=== PATIENT | male | born 1940 | race Caucasian/White ===

== ENCOUNTER 2020-08-05 17:59 | Inpatient (IN) | payer MEDICARE, OTHER ==
[~2020-08-05] VITALS: Ht 160 cm; Wt 86.2 kg
[2020-08-05] MEDS ORDERED: ACET-2154 PO (18:28)
[2020-08-05] MEDS ORDERED: OMEG1CAP PO (18:28)
[2020-08-05] MEDS ORDERED: OXYB-58 PO (18:28)
[2020-08-05] MEDS ORDERED: DOCU-141 PO (18:28)
[2020-08-05] MEDS ORDERED: IBUP-1953 PO ×2 (18:28)
[2020-08-05] MEDS ORDERED: CITA10TA17 PO (18:28)
[2020-08-05] MEDS ORDERED: GABA-532 PO (18:28)
[2020-08-05] MEDS ORDERED: QUET100T PO (18:28)
[2020-08-05] MEDS ORDERED: GUAI-671 PO (18:28)
[2020-08-05] MEDS ORDERED: ASPI81TA31 PO (18:28)
[2020-08-05] MEDS ORDERED: LORA10TA7 PO (18:28)
[2020-08-05] MEDS ORDERED: VIT1CAPS44 PO (18:28)
[2020-08-05] MEDS ORDERED: ISOS30TA86 PO (18:28)
[2020-08-05] MEDS ORDERED: ATOR20TA PO (18:28)
[2020-08-05] MEDS ORDERED: PROP10DR2 EACHEYE (18:28)
[2020-08-05] MEDS ORDERED: MELA3TAB41 PO (18:28)
[2020-08-05 18:39] LABS: BASOPHILS # (AUTO) 0.1 K/uL (0.0-8.0); EOSINOPHILS # (AUTO) 0.1 K/uL (0.0-0.7); HEMOGLOBIN 13.4 g/dL (12.5-16.3); LYMPHOCYTES % (AUTO) 29.4 % (20.5-51.5); MEAN CORPUSCULAR HEMOGLOBIN 29.4 uug (23.8-33.4); MEAN CORPUSCULAR HGB CONC 34 g/dL (32.5-36.3); MEAN CORPUSCULAR VOLUME 87.7 fL (73.0-96.2); MONOCYTES # (AUTO) 0.5 K/uL (2.0-10.0); MONOCYTES % (AUTO) 7.8 % (0.0-11.0); NEUTROPHILS # (AUTO) 4.1 K/uL (1.8-8.9); NEUTROPHILS % (AUTO) 59.8 % (38.5-71.5); PLATELET COUNT (AUTO) 223 K/uL (152-348); RED BLOOD CELL COUNT(AUTO) 4.56 MIL/uL (4.06-5.63); WHITE BLOOD COUNT (AUTO) 6.8 K/uL (3.6-10.2)
[2020-08-05 18:44] LABS: CARBON DIOXIDE 25 mmol/L (21-32); CHLORIDE 102 mmol/L (98-107); CREATININE 1.5 mg/dL (0.6-1.3); GLUCOSE 136 mg/dL (74-106); POTASSIUM 3.7 mmol/L (3.5-5.1); UREA NITROGEN, BLOOD 24 mg/dL (7-18)
[2020-08-05 18:50] LABS: ALANINE AMINOTRANSFERASE 24 U/L (16-63); ALKALINE PHOSPHATASE 130 U/L (50-136); ASPARTATE AMINOTRANSFERASE 13 U/L (15-37); BILIRUBIN,DIRECT 0.1 mg/dL (0.0-0.2); BILIRUBIN,TOTAL 0.3 mg/dL (0.2-1.0); TOTAL PROTEIN, SERUM 6.3 g/dL (6.4-8.2)
--- NOTE | 2020-08-05 18:55 | NUR ---
Patient is eating sandwich with good appetite, still for medical clearance and psych evaluation@this time.
[2020-08-05 19:04] LABS: ACETAMINOPHEN < 2.0 ug/mL (10-30); ETHANOL < 3 MG/DL (0-0)
--- NOTE | 2020-08-05 19:05 | NUR ---
Recieved report from Maeve FRASER. Pt. is being medically cleared for psych evaluation.
[2020-08-05 19:26] LABS: *BILIRUBIN,URIN NEGATIVE (NEGATIVE); *BLOOD, URINE NEGATIVE (NEGATIVE); *CLARITY,URINE CLEAR (CLEAR); *COLOR,URINE YELLOW (YELLOW); *KETONES,URINE NEGATIVE (NEGATIVE); *UROBILINOGEN,URINE 0.2 E.U./dl (NORMAL); LEUKOCYTE ESTERASE ,URINE NEGATIVE (NEGATIVE); NITRITE, URINE NEGATIVE (NEGATIVE); PH,URINE 5.5 (5.0-8.0); UGLUCOSE NEGATIVE (NEGATIVE)
[2020-08-05 19:34] LABS: *AMPHETAMINE, URINE NEGATIVE (NEGATIVE); *CANNABINOID, URINE NEGATIVE (NEGATIVE); *COCCAINE, URINE NEGATIVE (NEGATIVE); *OPIATE, URINE NEGATIVE (NEGATIVE); *PHENCYCLIDINE SCREEN,URINE NEGATIVE (NEGATIVE)
--- NOTE | 2020-08-05 20:08 | NUR ---
Pt. has been medically cleared. Called Flores (crisis team) to evaluate the pt.
[2020-08-05] MEDS ORDERED: ACETAMINOPHEN ES 500 MG TABLET PO ONE (20:15)
[2020-08-05] MEDS ORDERED: GABAPENTIN 300 MG CAPSULE PO ONE (20:15)
--- NOTE | 2020-08-05 21:00 | NUR ---
Pt. calm and cooperative, resting in bed. Will continue to monitor.
[2020-08-05] MEDS ORDERED: ACETAMINOPHEN ES 500 MG TABLET ONE (21:10)
[2020-08-05] MEDS ORDERED: GABAPENTIN 300 MG CAPSULE ONE (21:10)
--- NOTE | 2020-08-05 21:51 | NUR ---
Report given to Ximena FRASER.
--- NOTE | 2020-08-05 22:15 | NUR ---
Pt. admitted to MHU room 139A, under care of Dr. Pugh/CHACHO Cedeno. Belongs List completed.
[2020-08-05] MEDS ORDERED: MAGNESIUM HYDROXIDE 30 ML LIQUID UDC PO PRN (23:00)
[2020-08-05] MEDS ORDERED: MAG HYDROX/AL HYDROX/SIMETH 30 ML LIQUID UDC PO PRN (23:00)
[2020-08-05] MEDS ORDERED: LORAZEPAM 1 MG TABLET PO PRN (23:00)
[2020-08-05 23:01] VITALS: BP 113/68
[2020-08-05] MEDS: ZOLPIDEM 5 MG TABLET PO PRN (23:36)
--- NOTE | 2020-08-05 23:45 | NUR ---
ADMISSION NOTE: AT APPROX 2220, ADMITTED 79 YEARS OLD MALE FROM [facility]) ON A 5150 FOR DTO AND GD. ACCORDING TO HOLD, PATIENT WAS AGGRESSIVE, SCREAMING AND HITTING STAFF AND OTHER RESIDENT AT HIS FACILITY. HE WAS BIB AMBULANCE TO [facility] ER FOR ADMISSION TO MHU. PATIENT WAS MEDICALLY CLEARED BY ER DOCTOR AND ADMITTED TO MHU UNDER THE CARE OF DR COLEMAN AND DR LÓPEZ. UPON ADMISSION, FACE TO FACE ASSESSMENT WAS DONE, PATIENT WAS NOTED A/O X 2 ABLE TO AMBULATED WITH SLOW BUT STEADY GAIT. PT WAS ORDERED. UPON INTERVIEW, PATIENT STATED, "I WAS NOT AGGRESSIVE, I GOT UPSET BECAUSE I CALL THE NURSES AND THEY NEVER COME, THEY CAN NEVER HELP ME". PATIENT DENIED SI/HI/VH/AH. HE WAS VERBALLY ABLE TO CFS. PATIENT ADVISEMENT WAS GIVEN WELL HIS BOOKLET FOR "PATIENT'S RIGHTS IN MENTAL HEALTH FACILITIES". PATIENT WAS REASSURED FOR HIS SAFETY. HIS HOLD WILL BE UP ON 08/08/20 AT 2135. WILL CONTINUE TO MONITOR.
[2020-08-06 07:30] VITALS: BP 136/70
--- NOTE | 2020-08-06 08:20 | NUR ---
Firearms Report: Educational Diagnostician completed and submitted a [employer] firearms report for 5150 grave disability certification. A copy of report has been placed in patient chart.
--- NOTE | 2020-08-06 10:21 | NUR ---
Initial Discharge Plan: Patient is currently residing at [facility] [address] [place] [address]; ([phone]).This SW spoke with Julieta meyer ([phone]) who stated that they are unable to take care of pt due to behavioral issues. She expressed that he would need another nursing facility. This SW will attempt to find pt a different facility. Patient would like to return back to his SNF upon dc. This SW attempted to contact patient's son Kavin ([phone]) to discuss treatment and discharge plan, he stated that he would want pt back to [facility]. This SW will work with the MD and treatment team to coordinate discharge plan.
--- NOTE | 2020-08-06 11:49 | NUR ---
SNF Contact: This SW spoke with Julieta meyer ([phone]) and stated that patient's son Kavin wants pt to return back to his facility because he was a resident for 3 years. This SW stated that they would have to take pt back. Julieta stated "Ok".
--- NOTE | 2020-08-06 11:49 | NUR ---
SW Family Contact: This SW attempted to contact patient's son Kavin ([phone]) to discuss treatment and discharge plan, he stated that he would want pt back to [facility].
--- NOTE | 2020-08-06 14:36 | NUR ---
DARRELL Individual Therapy: buffing line set up worker met with patient for brief counseling to address patient's aggressive behavior. Patient presented angry and was unsure why he was brought to the hospital. Patient was stating that "I am not aggressive, I just requested food and the facility did not give it". DARRELL educated pt on his mental illness and his behavior. Pt was understanding.
[2020-08-06] MEDS: QUETIAPINE FUMARATE 25 MG TABLET PO SCH ×2 (15:23→17:00)
[2020-08-06] MEDS: ACETAMINOPHEN 325 MG TABLET PO PRN ×2 (15:23→21:16)
--- NOTE | 2020-08-06 16:25 | NUR ---
Gps/Radio Time Salesperson- Patient stayed in the activity room during the day, reading his books. Complained of lower back back slow with his mobility guarding his back, rubbing site, tylenol 650 mg po. given, verbalized adequate relief. Making his simple needs known to the staff
[2020-08-06 16:38] VITALS: BP 109/58
[2020-08-06 20:13] VITALS: BP 149/80
[2020-08-06] MEDS: QUETIAPINE FUMARATE 100 MG TABLET PO SCH (20:40)
[2020-08-06] MEDS: ZOLPIDEM 5 MG TABLET PO PRN (21:15)
--- NOTE | 2020-08-07 03:29 | NUR ---
PATIENT ALERT AWAKE, STAYED IN HIS ROOM, SLEEP WELL. PATIENT REQUEST PAIN MEDICATION FOR BACK PAIN AND INSOMNIA, MEDICATED ORDERED. PATIENT CALM AND COOPERATIVE WITH CARE. CONT TO MONITOR.
[2020-08-07 06:25] LABS: EOSINOPHILS % (AUTO) 2.1 % (0.0-7.0); HEMATOCRIT 41.8 % (36.7-47.1); HEMOGLOBIN 13.6 g/dL (12.5-16.3); LYMPHOCYTES % (AUTO) 31.6 % (20.5-51.5); MEAN CORPUSCULAR HEMOGLOBIN 28.8 uug (23.8-33.4); MEAN CORPUSCULAR HGB CONC 33 g/dL (32.5-36.3); MEAN CORPUSCULAR VOLUME 88.3 fL (73.0-96.2); MONOCYTES % (AUTO) 7.8 % (0.0-11.0); NEUTROPHILS % (AUTO) 57.5 % (38.5-71.5); PLATELET COUNT (AUTO) 213 K/uL (152-348); RED BLOOD CELL COUNT(AUTO) 4.74 MIL/uL (4.06-5.63); WHITE BLOOD COUNT (AUTO) 6.6 K/uL (3.6-10.2)
[2020-08-07 06:26] LABS: BASOPHILS # (AUTO) 0.1 K/uL (0.0-8.0); EOSINOPHILS # (AUTO) 0.1 K/uL (0.0-0.7); LYMPHOCYTES # (AUTO) 2.1 K/uL (20.0-40.0); MONOCYTES # (AUTO) 0.5 K/uL (2.0-10.0); NEUTROPHILS # (AUTO) 3.8 K/uL (1.8-8.9)
[2020-08-07 06:37] LABS: BILIRUBIN,TOTAL 0.4 mg/dL (0.2-1.0); CREATININE 1.1 mg/dL (0.6-1.3); MAGNESIUM 2.2 mg/dL (1.8-2.4); PHOSPHOROUS 3.5 mg/dL (2.5-4.9); POTASSIUM 4.1 mmol/L (3.5-5.1); TOTAL PROTEIN, SERUM 6.4 g/dL (6.4-8.2)
[2020-08-07 07:30] VITALS: BP 120/78
[2020-08-07] MEDS: QUETIAPINE FUMARATE 25 MG TABLET PO SCH ×2 (09:42→16:59)
[2020-08-07] MEDS: CITALOPRAM 10 MG TABLET PO SCH (09:42)
--- NOTE | 2020-08-07 12:59 | NUR ---
SNF Contact: This SW spoke with Julieta betsy ([phone]) and stated patient will be discharged sometime next week and she stated that she would need to evaluate pt. This SW stated they can evaluate pt next week before there discharge back to [facility]. This SW educated the facility the [facility] and Medicare guidelines and regulations. This SW informed that pt will return back regardless because family is requesting and pt has been with them for 3 years.
--- NOTE | 2020-08-07 14:26 | NUR ---
DARRELL Individual Therapy: table worker packager met with patient for brief counseling to address patient's aggressive behavior. Patient is not aggressive towards staff. Patient stated that he is doing "well" and has been cooperative with his treatment. Patient expressed that "I am not aggressive and people just don't understand me". Patient actively listened and provided support.
[2020-08-07 16:44] VITALS: BP 138/49
[2020-08-07 20:12] VITALS: BP 117/72
[2020-08-07] MEDS: QUETIAPINE FUMARATE 100 MG TABLET PO SCH (20:35)
--- NOTE | 2020-08-08 05:59 | NUR ---
Pt asleep, no s/s of distress. Denies pain during the shift. No change in LOC, no episode of aggressive behavior noted. Compliant with meds, cooperative with care. Safety precautions in place. Frequent checks done.
[2020-08-08 08:27] VITALS: BP 152/77
[2020-08-08] MEDS: CITALOPRAM 10 MG TABLET PO SCH (08:34)
[2020-08-08] MEDS: QUETIAPINE FUMARATE 25 MG TABLET PO SCH ×2 (08:34→16:09)
[2020-08-08] MEDS ORDERED: ACETAMINOPHEN 325 MG TABLET PO PRN (14:30)
[2020-08-08] MEDS: DOCUSATE SODIUM 100 MG CAPSULE PO SCH (16:10)
[2020-08-08] MEDS: GABAPENTIN 300 MG CAPSULE PO SCH (16:10)
[2020-08-08 16:16] VITALS: BP 146/68
[2020-08-08] MEDS ORDERED: GABAPENTIN 100 MG CAPSULE PO SCH (17:00)
[2020-08-08 20:00] VITALS: BP 128/66
[2020-08-08] MEDS: ATORVASTATIN 20 MG TABLET PO SCH (20:08)
[2020-08-08] MEDS: QUETIAPINE FUMARATE 100 MG TABLET PO SCH (20:08)
[2020-08-08] MEDS: MELATONIN 3 MG TABLET PO SCH (20:08)
[2020-08-08] MEDS: ZOLPIDEM 5 MG TABLET PO PRN (23:47)
[2020-08-09 07:30] VITALS: BP 118/71
[2020-08-09] MEDS: QUETIAPINE FUMARATE 25 MG TABLET PO SCH ×2 (08:33→16:15)
[2020-08-09] MEDS: OXYBUTYNIN XL 5 MG TABSR PO SCH (08:33)
[2020-08-09] MEDS: ASPIRIN 81 MG TAB.CHEW PO SCH (08:33)
[2020-08-09] MEDS: OMEGA-3 FATTY ACIDS/FISH OIL CAPSULE PO SCH (08:33)
[2020-08-09] MEDS: GABAPENTIN 300 MG CAPSULE PO SCH ×3 (08:33→16:15)
[2020-08-09] MEDS: DOCUSATE SODIUM 100 MG CAPSULE PO SCH ×2 (08:33→16:15)
[2020-08-09] MEDS: CITALOPRAM 10 MG TABLET PO SCH (08:33)
[2020-08-09] MEDS: ISOSORBIDE MONONITRATE 30 MG TAB.SR.24H PO SCH (09:28)
[2020-08-09 15:13] VITALS: BP 119/71
[2020-08-09] MEDS: ATORVASTATIN 20 MG TABLET PO SCH (20:01)
[2020-08-09] MEDS: MELATONIN 3 MG TABLET PO SCH (20:01)
[2020-08-09] MEDS: QUETIAPINE FUMARATE 100 MG TABLET PO SCH (20:01)
[2020-08-09 20:11] VITALS: BP 101/51
[2020-08-10 07:30] VITALS: BP 135/69
[2020-08-10] MEDS: OMEGA-3 FATTY ACIDS/FISH OIL CAPSULE PO SCH (08:36)
[2020-08-10] MEDS: ISOSORBIDE MONONITRATE 30 MG TAB.SR.24H PO SCH (08:36)
[2020-08-10] MEDS: QUETIAPINE FUMARATE 25 MG TABLET PO SCH ×2 (08:36→17:11)
[2020-08-10] MEDS: GABAPENTIN 300 MG CAPSULE PO SCH ×3 (08:36→17:11)
[2020-08-10] MEDS: DOCUSATE SODIUM 100 MG CAPSULE PO SCH ×2 (08:36→17:11)
[2020-08-10] MEDS: OXYBUTYNIN XL 5 MG TABSR PO SCH (08:36)
[2020-08-10] MEDS: ASPIRIN 81 MG TAB.CHEW PO SCH (08:36)
[2020-08-10] MEDS: CITALOPRAM 10 MG TABLET PO SCH (08:37)
[2020-08-10 15:14] VITALS: BP 111/67
[2020-08-10] MEDS: MELATONIN 3 MG TABLET PO SCH (20:12)
[2020-08-10] MEDS: ATORVASTATIN 20 MG TABLET PO SCH (20:12)
[2020-08-10] MEDS: QUETIAPINE FUMARATE 100 MG TABLET PO SCH (20:12)
[2020-08-10 20:19] VITALS: BP 138/77
[2020-08-10 21:23] LABS: *BILIRUBIN,URIN NEGATIVE (NEGATIVE); *BLOOD, URINE NEGATIVE (NEGATIVE); *CLARITY,URINE CLEAR (CLEAR); *COLOR,URINE YELLOW (YELLOW); *KETONES,URINE NEGATIVE (NEGATIVE); LEUKOCYTE ESTERASE ,URINE NEGATIVE (NEGATIVE); NITRITE, URINE NEGATIVE (NEGATIVE); UGLUCOSE NEGATIVE (NEGATIVE)
[2020-08-10 21:25] LABS: *CREATININE,URINE 78.6 mg/dL (30-125); *URINE TOTAL PROTEIN RANDOM 9.4 mg/dL (<150/24HR)
--- NOTE | 2020-08-11 06:24 | NUR ---
Patient resting in bed, Slept 7 hours. No signs of aggressive behavior noted throughout shift. Compliant with all medications and UA culture sent to lab. Safety measures and q15 min visual checks remain intact.
[2020-08-11 07:30] VITALS: BP 127/69
[2020-08-11] MEDS: ASPIRIN 81 MG TAB.CHEW PO SCH (09:48)
[2020-08-11] MEDS: QUETIAPINE FUMARATE 25 MG TABLET PO SCH ×2 (09:48→17:15)
[2020-08-11] MEDS: OMEGA-3 FATTY ACIDS/FISH OIL CAPSULE PO SCH (09:48)
[2020-08-11] MEDS: OXYBUTYNIN XL 5 MG TABSR PO SCH (09:48)
[2020-08-11] MEDS: ISOSORBIDE MONONITRATE 30 MG TAB.SR.24H PO SCH (09:49)
[2020-08-11] MEDS: DOCUSATE SODIUM 100 MG CAPSULE PO SCH ×2 (09:49→17:15)
[2020-08-11] MEDS: CITALOPRAM 10 MG TABLET PO SCH (09:49)
[2020-08-11] MEDS: GABAPENTIN 300 MG CAPSULE PO SCH ×3 (09:49→17:15)
--- NOTE | 2020-08-11 12:51 | NUR ---
SNF Contact: This SW spoke with Julieta meyer and SANDEEP Pradhan ([phone]) to confirm that pt will return back to 08/13 to [facility]. This SW faxed patient's clinicals ([phone]).
--- NOTE | 2020-08-11 13:50 | NUR ---
DARRELL Individual Therapy: assembly worker met with patient for brief counseling to help address patients presenting problem aggressive behavior. Patient presented with euthymic mood. Patient stated that he has been calm and cooperative. Patient stated "I am ready for discharge and I am feeling better". Patient presented to be happier at the hospital. SW actively listened and provided emotional support.
[2020-08-11 14:35] LABS: ALBUMIN 3.4; M-SPIKE Not Observed
[2020-08-11 14:36] LABS: A/G RATIO 1.4; ALPHA-1-GLOBULIN 0.3; ALPHA-2-GLOBULIN 0.8; BETA GLOBULIN 0.9; GAMMA GLOBULIN 0.6; GLOBULIN, TOTAL 2.5
[2020-08-11 16:05] VITALS: BP 130/69
[2020-08-11] MEDS: QUETIAPINE FUMARATE 100 MG TABLET PO SCH (20:07)
[2020-08-11] MEDS: ATORVASTATIN 20 MG TABLET PO SCH (20:08)
[2020-08-11] MEDS: ACETAMINOPHEN 325 MG TABLET PO PRN (20:08)
[2020-08-11] MEDS: MELATONIN 3 MG TABLET PO SCH (20:08)
[2020-08-11 20:11] VITALS: BP 133/71
[2020-08-12 07:19] LABS: CREATININE 1.1 mg/dL (0.6-1.3); POTASSIUM 4.6 mmol/L (3.5-5.1)
[2020-08-12 07:30] VITALS: BP 122/74
--- NOTE | 2020-08-12 07:30 | NUR ---
Received report from ANMOL Domínguez. All questions, comments, and concerns were addressed. Received patient resting quietly and comfortably in assigned bed. Bed is in low and locked position with bed alarm on.
[2020-08-12] MEDS: DOCUSATE SODIUM 100 MG CAPSULE PO SCH ×2 (08:15→16:11)
[2020-08-12] MEDS: OXYBUTYNIN XL 5 MG TABSR PO SCH (08:15)
[2020-08-12] MEDS: ASPIRIN 81 MG TAB.CHEW PO SCH (08:15)
[2020-08-12] MEDS: ISOSORBIDE MONONITRATE 30 MG TAB.SR.24H PO SCH (08:15)
[2020-08-12] MEDS: GABAPENTIN 300 MG CAPSULE PO SCH ×3 (08:15→16:11)
[2020-08-12] MEDS: OMEGA-3 FATTY ACIDS/FISH OIL CAPSULE PO SCH (08:15)
[2020-08-12] MEDS: QUETIAPINE FUMARATE 25 MG TABLET PO SCH ×2 (08:15→16:11)
[2020-08-12] MEDS: CITALOPRAM 10 MG TABLET PO SCH (08:16)
--- NOTE | 2020-08-12 11:18 | NUR ---
DARRELL PC Hearing: Patient had 5250 probable cause hearing today and it was upheld for grave disability.
--- NOTE | 2020-08-12 13:18 | NUR ---
SW Individual Therapy: medical case worker met with patient for brief counseling to help address patients presenting problem aggressive behavior. Patient presented with euthymic mood. Patient is cooperative with treatment and has been pleasant. Patient stated that he is happy and is excited about going back home to his nursing facility. Patient expressed "I am not aggressive, I have always been calm". This SW actively listened and encouraged pt to remain cooperative with his treatment.
--- NOTE | 2020-08-12 15:58 | NUR ---
SNF Contact: This SW spoke with Deisy Kolb ([phone]) who stated pt is welcomed back on 08/13.
[2020-08-12 16:00] VITALS: BP 127/76
--- NOTE | 2020-08-12 17:00 | NUR ---
patient is alert and oriented. he is calm, cooperative, and has appropriate interaction with staff. patient is guarded to his room and is encouraged to participate in the unit groups and therapeutic milieu. patient denies SI/HI, denies AH/VH. patient is adherent with medication, no adverse reaction noted. patient is able to ambulate independently with FWW. bed is in low and locked position with bed alarm on.
[2020-08-12 20:09] VITALS: BP 122/60
[2020-08-12] MEDS: MELATONIN 3 MG TABLET PO SCH (20:36)
[2020-08-12] MEDS: ATORVASTATIN 20 MG TABLET PO SCH (20:36)
[2020-08-12] MEDS: QUETIAPINE FUMARATE 100 MG TABLET PO SCH (20:36)
[2020-08-13 07:30] VITALS: BP 121/64
[2020-08-13 08:10] VITALS: BP 121/64
[2020-08-13] MEDS: DOCUSATE SODIUM 100 MG CAPSULE PO SCH (08:10)
[2020-08-13] MEDS: CITALOPRAM 10 MG TABLET PO SCH (08:10)
[2020-08-13] MEDS: OXYBUTYNIN XL 5 MG TABSR PO SCH (08:10)
[2020-08-13] MEDS: ISOSORBIDE MONONITRATE 30 MG TAB.SR.24H PO SCH (08:10)
[2020-08-13] MEDS: QUETIAPINE FUMARATE 25 MG TABLET PO SCH (08:10)
[2020-08-13] MEDS: OMEGA-3 FATTY ACIDS/FISH OIL CAPSULE PO SCH (08:10)
[2020-08-13] MEDS: ASPIRIN 81 MG TAB.CHEW PO SCH (08:10)
[2020-08-13] MEDS: GABAPENTIN 300 MG CAPSULE PO SCH ×2 (08:11→12:16)
--- NOTE | 2020-08-13 08:23 | NUR ---
SW Discharge Note: Patient will be discharged to [facility] located at [id number] [place] [address]; ([phone]) via ambulance at 1PM. Tank Insulator Rubber spoke with Julieta Kolb, Deisy Kolb, Carolynn HOPKINS, Senior Sas Developer at [facility] ([phone]), and he confirmed that patient will be accepted at their facility today. Patients son Kavin ([phone]) is aware and agreeable with discharge. Patient is alert and oriented x2. Patient is not able to plan for self-care at this time but is willing to accept care provided for his at the facility. Patient denies suicidal or homicidal ideation. Patient denies visual/auditory hallucinations. Patient is aware and agreeable with discharge plans. Patient will follow-up with (Psychiatrist) Dr. Zazueta and (Ceramic Products Sales Engineer) Dr. Lieberman at [facility]. Patient presented with euthymic mood and congruent affect.
--- NOTE | 2020-08-13 11:50 | NUR ---
Gps/Agriculture Extension Specialist- Called Bethanie Au report was given to EVELIO Gomez. informed pickle processor time at 1300. via ambulance.
--- NOTE | 2020-08-13 13:35 | NUR ---
Gps/Nutter Up- Discharged to [facility] via ambulance, all belongings including his phone returned back to patient. Discharged in good spuirit via ambulance, no complaints noted.
== END 2020-08-13 13:38 | DRG 885 ==
LOC: ER 17:59 → GPS 21:57
PROVIDERS: ADMIT Psychiatry & Neurology Psychiatry
DX: F33.3 Major depressive disorder, recurrent, severe with psychotic symptoms (principal); N17.0 Acute kidney failure with tubular necrosis; N18.9 Chronic kidney disease, unspecified; F03.91 Unspecified dementia, unspecified severity, with behavioral disturbance; J44.9 Chronic obstructive pulmonary disease, unspecified; G47.00 Insomnia, unspecified; E78.5 Hyperlipidemia, unspecified; G62.9 Polyneuropathy, unspecified; E03.9 Hypothyroidism, unspecified; I10 Essential (primary) hypertension; I25.119 Atherosclerotic heart disease of native coronary artery with unspecified angina pectoris; N40.0 Benign prostatic hyperplasia without lower urinary tract symptoms; I25.2 Old myocardial infarction; Z79.82 Long term (current) use of aspirin; Z88.0 Allergy status to penicillin; Y92.89 Other specified places as the place of occurrence of the external cause; N32.81 Overactive bladder; Z73.6 Limitation of activities due to disability; Z20.822 Contact with and (suspected) exposure to COVID-19; H91.90 Unspecified hearing loss, unspecified ear
CPT/HCPCS: 36415; 70030-TC; 71045; 73562; 76770; 83735; 83970; 84100; 84155; 84156; 84165; 84300; 84443; 85025; 87086; 93005; A4663; A9150; G0480